=== PATIENT | female | born 1990 | race Caucasian/White ===

== ENCOUNTER 2023-03-09 19:02 | Emergency (ER) | payer OTHER ==
[~2023-03-09] VITALS: Ht 154.9 cm; Wt 86.2 kg
[2023-03-09 19:33] VITALS: BP_SYST 111; PULSE 79; RESP 18; TEMP 97.7; O2SAT 98
[2023-03-09] MEDS ORDERED: ACETAMINOPHEN 325 MG TABLET PO ONE (20:30)
[2023-03-09] MEDS ORDERED: IBUPROFEN 600 MG TABLET PO ONE (20:30)
[2023-03-09] MEDS ORDERED: IBUP-1970 PO (20:31)
[2023-03-09] MEDS ORDERED: LIDOINT TP (20:31)
[2023-03-09] MEDS ORDERED: CYCL10TA24 PO (20:31)
[2023-03-09] MEDS ORDERED: ACET-2634 PO (20:31)
[2023-03-09] MEDS ORDERED: ONDA-8 TL (20:32)
[2023-03-09 20:55] VITALS: BP_SYST 113; PULSE 77; RESP 18; TEMP 97.9; O2SAT 98
== END 2023-03-09 20:55 | disposition home or self-care (01) ==
LOC: SED 19:02
DX: S06.0X0A Concussion without loss of consciousness, initial encounter (principal); S50.311A Abrasion of right elbow, initial encounter; Z79.899 Other long term (current) drug therapy; V89.2XXA Person injured in unspecified motor-vehicle accident, traffic, initial encounter; Y93.89 Activity, other specified; Y92.89 Other specified places as the place of occurrence of the external cause; Y99.8 Other external cause status
CPT/HCPCS: 99283